=== PATIENT | male | born 1940 | race Caucasian/White ===

== ENCOUNTER 2019-05-04 09:44 | Day surgery (SDC) | payer MEDICARE ==
[2019-04-30 11:52] VITALS: BMI 28.4
[~2019-05-04 09:44] MED LIST: LACTATED RINGERS 1,000 ML IV SCH; LIDOCAINE 1% 20 ML VIAL (10MG/ML) FOR IV START INTRADERMA PRN
[2019-05-04 10:03] VITALS: RESP 18; TEMP 97.2
[2019-05-04] MEDS ORDERED: LACTATED RINGERS 1,000 ML IV ONE (10:04)
[2019-05-04] MEDS ORDERED: LIDOCAINE 1% 20 ML VIAL (10MG/ML) FOR IV START INTRADERMA ONE (10:08)
[2019-05-04] MEDS ORDERED: PROPOFOL 10 MG/ML 20 ML VIAL IV ONE (11:40)
[2019-05-04] MEDS ORDERED: LIDOCAINE 1% INJ 10MG/ML (20 ML MDV) ONE (11:40)
--- NOTE | 2019-05-04 12:19 | P.PCN ---
Date of Procedure: 05/04/19 Procedure(s) Performed: Procedure: Total colonoscopy. Preoperative diagnosis: Screening for neoplasia, patient has history of polyps. Postoperative diagnosis: Exam within normal limits. Preparation: HalfLytely prep. Sedation: Was provided by anesthesia. Brief clinical history: The patient is a 78-year-old male who is scheduled for this evaluation for screening for neoplasia because of history of polyps. His last exam was around 5 years ago when he lived in [place]. The patient has no abdominal complaints, bleeding or anemia. Procedure: With the patient on his left lateral decubitus position and after informed consent and adequate sedation, the perianal area was inspected and it did not show any fissures or fistulas. There were no masses felt on digital rectal examination. The Olympus CFH 190L video colonoscope was then inserted in the rectum in the usual fashion and advanced to the cecum. The mucosa appeared healthy. No polyps or tumors were seen or any obvious diverticular disease or other pathology. I retroflexed the endoscope in the rectum before the endoscope was withdrawn. The patient tolerated the procedure well. Plan: The patient was reassured. He will follow up with you as planned and at his age, I did not recommend further screening in 5 years.
[2019-05-04 12:37] VITALS: BP 143/82; PULSE 64
== END 2019-05-04 12:53 | disposition home or self-care (01) ==
LOC: ORWHC2ENDO 09:44
DX: Z12.11 Encounter for screening for malignant neoplasm of colon (principal); Z86.010 Personal history of colon polyps; K21.9 Gastro-esophageal reflux disease without esophagitis; K44.9 Diaphragmatic hernia without obstruction or gangrene; Z79.899 Other long term (current) drug therapy; Z91.018 Allergy to other foods; Z87.891 Personal history of nicotine dependence
CPT/HCPCS: G0105; J2001; J2704

== ENCOUNTER → 2020-04-21 | Outpatient (CLI) | payer MEDICARE ==
[2020-04-21 13:26] LABS: African American GFR (CKD) >90 (>60 ml/min/1.73 sqM); Blood Urea Nitrogen 14 mg/dL (9-20); Non-African American GFR(CKD) 82 (>60 ml/min/1.73 sqM)
--- NOTE | 2020-04-21 14:31 | CT ---
EXAMINATION TYPE: CT soft tissue neck w con DATE OF EXAM: 04/21/2020 2:14 PM COMPARISON: None HISTORY: right side submandibular mass CT DLP: 512.4 mGycm Automated exposure control for dose reduction was used. CONTRAST: CT scan of the neck is performed following with IV Contrast, patient injected with 100 mL of Isovue 3 00. Axial images are obtained, coronal and sagittal reformatted images are reviewed. FINDINGS: Mild emphysematous changes of the lung apices with biapical pleural thickening. 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 Canal stenosis and foraminal encroachment suspected. Thyroid is homogeneous. Vasculature enhances normally. There is atherosclerotic plaque involving the carotid bifurcation bilaterally greater on the right. There is a marker overlying the submandibular region on the right. There is a fat attenuation lesion measuring 5 x 4 cm. Differential diagnosis would include a lipoma or atypical lipoma given its size. Submandibular glands are symmetric in appearance. There is slight asymmetry of the base the tongue on the left which should be correlated with direct visualization. Vocal cords have a normal appearance. Airways patent. Nasopharynx and oropharynx otherwise symmetric. Visualized globes and intracranial structures are symmetric there is nodular prominence of the right MCA bifurcation. Chronic asymmetry to the thyroid cartilage incidentally noted. Shotty adenopathy seen throughout the soft tissues the neck with no diagnostic evidence of pathologic adenopathy. IMPRESSION: 1. 5 cm mass corresponds to the area of palpable abnormality in the submandibular region of the right neck has fat attenuation. Most likely etiology is a lipoma. Given it measures 5 cm atypical lipoma w ould also be in the differential diagnosis. No pathologic adenopathy. 2. Slight asymmetry of the base the tongue on the left may be technical correlate with direct visuali zation as clinically warranted to exclude mucosal lesion. 3. Slight nodular prominence the right MCA bifurcation most likely on the basis of tortuosity. If the re is a family history or concern for aneurysm in MRA wrangell of [place] could be obtained on a short-t erm basis.
== END | disposition home or self-care (01) ==
LOC: RADCTMAIN 12:54
PROVIDERS: ATTEND Otolaryngology
DX: R22.1 Localized swelling, mass and lump, neck (principal)
CPT/HCPCS: 82565; 84520; 70491; 36415; Q9967

== ENCOUNTER → 2022-04-19 | Outpatient (CLI) | payer MEDICARE ==
--- NOTE | 2022-04-21 13:26 | US ---
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 Right knee pain for 2 months. Rule out Trinidad's cyst. Technique: Multiple sonographic images along the site of patient's right knee pain, posteriorly. FINDINGS: Support Technician notes: Small anechoic area right popliteal fossa = 1.0 x 0.7 x 1.1cm IMPRESSION: Tiny round area in the right popliteal fossa measuring 1.1 cm. This is nonspecific. It could represen t a prominent but nonenlarged lymph node, a ganglion cyst, small nerve sheath tumor, or a tiny Trinidad' s cyst. If it represents a Trinidad cyst, it is not felt to be large enough to account for the patient's symptoms. Consider further radiographic and MRI evaluation if warranted.
== END | disposition home or self-care (01) ==
LOC: RADUSWWP 15:35
PROVIDERS: ATTEND Family Medicine
DX: M71.21 Synovial cyst of popliteal space [Baker], right knee (principal)

== ENCOUNTER 2022-10-11 06:58 | Day surgery (SDC) | payer MEDICARE ==
[~2022-10-11 06:58] MED LIST changes: +ALPRAZolam 0.25 MG TAB PO PRN; +ALPRAZolam 0.5 MG TAB PO PRN; +ASPIRIN 325 MG TAB PO STA; +ATORVASTATIN 80 MG TAB PO STA; -LACTATED RINGERS 1,000 ML IV SCH; -LIDOCAINE 1% 20 ML VIAL (10MG/ML) FOR IV START INTRADERMA PRN; +NITROGLYCERIN SL TABS 0.4 MG TAB SUBLINGUAL PRN; +SODIUM CHLORIDE 0.9% 1,000 ML in EMPTY BAG 1 BAG IV SCH
[2022-10-11] MEDS ORDERED: HEPARIN SODIUM,PORCINE 2,500 UNIT in SODIUM CHLORIDE 0.9% 250 ML IRRIGATION PRN (07:00)
[2022-10-11] MEDS ORDERED: HEPARIN SODIUM,PORCINE 10,000 UNIT in SODIUM CHLORIDE 0.9% 1,000 ML IRRIGATION PRN (07:00)
[2022-10-11 07:38] VITALS: RESP 16; TEMP 98.1
[2022-10-11 07:43] LABS: Basophils # (A) 0.1 k/uL (0-0.2); Basophils % (A) 1 %; Eosinophils # (A) 0.8 k/uL (0-0.7); Eosinophils % (A) 9 %; HCT 47.3 % (39.0-53.0); HGB 16.2 gm/dL (13.0-17.5); Lymphocytes % (A) 23 %; MCHC 34.3 g/dL (31.0-37.0); MCV 93.4 fL (80.0-100.0); Monocytes # (A) 0.4 k/uL (0-1.0); Monocytes % (A) 5 %; Neutrophils % (A) 58 %; Platelet Count 252 k/uL (150-450); RBC 5.07 m/uL (4.30-5.90); RDW 13.2 % (11.5-15.5); WBC 8.6 k/uL (3.8-10.6)
[2022-10-11 08:12] LABS: African American GFR (CKD) >90 (>60 ml/min/1.73 sqM); Anion Gap 10 mmol/L; Blood Urea Nitrogen 11 mg/dL (9-20); Calcium 9.1 mg/dL (8.4-10.2); Carbon Dioxide 28 mmol/L (22-30); Chloride 104 mmol/L (98-107); Glucose 101 mg/dL (74-99); Non-African American GFR(CKD) 79 (>60 ml/min/1.73 sqM); Potassium 4.1 mmol/L (3.5-5.1); Sodium 142 mmol/L (137-145)
[2022-10-11] MEDS ORDERED: VERAPAMIL 2.5 MG/ML 2 ML AMP ONE (09:14)
[2022-10-11] MEDS ORDERED: fentaNYL (PF) 50 MCG/ML 2 ML AMP ONE (09:19)
[2022-10-11] MEDS ORDERED: MIDAZOLAM 2 MG/2 ML VIAL IVP ONE (09:45)
[2022-10-11] MEDS ORDERED: fentaNYL (PF) 50 MCG/ML 2 ML AMP IVP ONE (09:45)
[2022-10-11] MEDS ORDERED: LIDOCAINE 1% INJ 10MG/ML (30 ML VIAL-PF) SQ ONE (09:47)
[2022-10-11] MEDS ORDERED: HEPARIN SODIUM 1,000 UN/ML (10ML VL) ONE (09:49)
[2022-10-11] MEDS ORDERED: HEPARIN SODIUM 1,000 UN/ML (10ML VL) IVP ONE ×2 (09:50→10:00)
[2022-10-11] MEDS ORDERED: NITROGLYCERIN 1000MCG/10ML SYRINGE INTRAARTER ONE ×2 (10:02→10:08)
[2022-10-11] MEDS ORDERED: IOPAMIDOL-370 125ML BTL INJ ONE (10:10)
[2022-10-11 14:14] VITALS: BP 130/72; PULSE 50
--- NOTE | 2022-10-11 22:23 | P.PRCINT ---
Percutaneous Coronary Int. - Percutaneous Coronary Intervention Percutaneous Coronary Intervention: PROCEDURES PERFORMED: Right coronary angiography, PCI mid RCA with a 3.25 x 33mm Xience MONSERRAT INDICATION: Chest pain with exertion, abnormal stress test, diagnostic catheterization showing 95% RCA stenosis and intermediate disease on the left CONSENT:I have discussed the risks, benefits and alternative therapies for the above-mentioned procedure and for both sedation/analgesia as well as necessary blood product administration, if indicated, as they pertain to this patient. The patient has indicated understanding and acceptance of the risks and procedures discussed. PROCEDURE: After the risks, benefits and alternatives of the above mentioned procedure explained in detail with the patient, informed consent was obtained. Patient was taken to the catheterization lab and prepped and draped in usual fashion. 1% lidocaine was used to anesthetize the right radial artery. A 6Fr sheath was placed in the right radial artery. The decision was made to perform PCI of the mid RCA. Heparin was given. A 6Fr AL 0.75 guide was used to engage the RCA. A 0.014 BMW wire was advanced into the distal RCA. There was a 95% stenosis followed by tandem 60 and 70% stenoses and therefore both were covered. A 2.75 x 20mm balloon was used to predilate the lesion. Next a 3.25 x 33mm Xience MONSERRAT was advanced and deployed. The wire was pulled and final angiograms were performed. Pre intervention there was 95% stenosis and MILLIE 3flow and post intervention there was <10% stenosis and MILLIE 3 flow. The right radial sheath was removed and a TR band was placed with hemostasis achieved. The patient tolerated the procedure well. Patient was transported back to the post catheterization holding area in stable condition. Conscious Sedation: Patient was monitored under the direct supervision of vision of myself for conscious sedation using Versed and fentanyl for a total duration of 24 minutes HEMODYNAMICS: Ao: 121/48 SELECTIVE CORONARY ARTERIOGRAPHY: LEFT MAIN: Not imaged LEFT ANTERIOR DESCENDING CORONARY ARTERY: Not imaged LEFT CIRCUMFLEX CORONARY ARTERY: Not imaged RIGHT CORONARY ARTERY: The right coronary artery is a large caliber vessel which gives off a PDA and PLV branch and is the dominant vessel. There is a mid RCA 95% stenosis followed by a tandem 60 and 70% stenoses. FINAL IMPRESSION: 1. CAD as described above including RCA 95% and 60-70% stenoses 2. S/p PCI mid RCA with a 3.25 x 33mm Xience MONSERRAT PLAN: 1. Aggressive risk factor modification per most recent ACC/AHA guidelines. 2. Continue dual antiplatelets for 12 months with aspirin and Plavix.
== END 2022-10-11 14:55 | disposition home or self-care (01) ==
LOC: CATHCVL 06:58
PROVIDERS: ATTEND Internal Medicine
DX: I25.10 Atherosclerotic heart disease of native coronary artery without angina pectoris (principal); R94.39 Abnormal result of other cardiovascular function study
CPT/HCPCS: 80048; 85025; C9600; C1769 ×3; C1887; C1894; C1725; C1874; J2250; J2001; J3010; J1644; Q9967